=== PATIENT | male | born 1990 | race Caucasian/White ===

== ENCOUNTER 2016-07-14 12:19 | Emergency (ER) | payer SELFPAY ==
[2016-07-14] MEDS ORDERED: ACETAMINOPHEN 325 MG TABLET PO ONE (12:26)
--- NOTE | 2016-07-14 12:28 | ER Document Report ---
ED Medical Screen (RME) - General Stated Complaint: SORE THROAT Mode of Arrival: Ambulatory Information source: Patient Notes: Patient presents with sore throat, body ache, joint pain fever since . No vomiting or diarrhea. Pt looks good, nontoxic looking. I have greeted and performed a rapid initial assessment of this patient. A comprehensive ED assessment and evaluation of the patient, analysis of test results and completion of the medical decision making process will be conducted by additional ED providers.
--- NOTE | 2016-07-14 12:55 | ER Document Report ---
HPI - HPI Patient complains to provider of: sore throat Pain Level: 4 Context: Patient is a 26-year-old male presents emergency Department complaining of sore throat and body aches since . Patient admits to subjective fevers. Denies any nausea vomiting diarrhea constipation. Tolerating by mouth without any difficulty. 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 IN LAST 30 DAYS: No - HEENT HEENT: Atraumatic, Normocephalic, PERRLA, Pharyngeal Tenderness, Pharyngeal Erythema. negative: Pharyngeal Exudate, Tympanic Membrane Red, Tympanic Membrane Bulging Notes: No evidence of retropharyngeal or peritonsillar abscess. - NECK Neck: Normal Inspection, Other - Tender to palpation along and of the jaw.. negative: Lymphadenopathy-Left, Lymphadenopathy-Right - RESPIRATORY Respiratory: Breath Sounds Normal, No Respiratory Distress, Chest Non-Tender. negative: Rales, Rhonchi, Wheezing O2 Sat by Pulse Oximetry: 96 - CARDIOVASCULAR Cardiovascular: Regular Rate, Regular Rhythm, No Murmur Pulses: Normal: Radial - GI/ABDOMEN Gastrointestinal: Abdomen Soft, Abdomen Non-Tender, No Organomegaly - MUSCULOSKELETAL/EXTREMETIES Musculoskeletal/Extremeties: MAEW, FROM, Non-Tender, No Edema. negative: Eccymosis - NEURO Level of Consciousness: Awake, Alert, Appropriate Motor/Sensory: No Motor Deficit, No Sensory Deficit - DERM Integumentary: Warm, Dry, No Rash Course - Re-evaluation Re-evalutation: 07/14/16 13:45 Patient is a 26-year-old male presents to the emergency Department complaining of sore throat since . Rapid strep came back positive. We'll treat patient with by mouth penicillin and [facility]. - Vital Signs Vital signs: Temp Pulse Resp BP Pulse Ox 100.3 F 100 18 159/84 H 96 07/14/16 12:24 07/14/16 12:24 07/14/16 12:24 07/14/16 12:24 07/14/16 12:24 Discharge - Discharge Clinical Impression: Strep pharyngitis Condition: Good Disposition: HOME, SELF-CARE Instructions: Penicillin V K ([facility]), Strep Throat ([facility]) Prescriptions: Penicillin V Potassium [Penicillin Vk 500 mg Tablet] 500 mg PO BID #20 tablet Forms: Return to Work, Elevated Blood Pressure Referrals: [facility] [NO LOCAL MD] - Follow up as needed
[2016-07-14] MEDS ORDERED: PENICILLIN V POTASSIUM 500 MG TABLET PO ONE (13:47)
[2016-07-14 14:00] VITALS: BP 130/71
== END 2016-07-14 13:57 | disposition home or self-care (01) ==
LOC: ER 12:19
DX: J02.0 Streptococcal pharyngitis (principal); J02.9 Acute pharyngitis, unspecified; R52 Pain, unspecified; R50.9 Fever, unspecified; Z87.891 Personal history of nicotine dependence
CPT/HCPCS: 87804; 87880; 99283

== ENCOUNTER 2019-01-18 17:22 | Emergency (ER) | payer SELFPAY ==
--- NOTE | 2019-01-18 18:22 | EKG REPORT ---
SEVERITY:- ABNORMAL ECG - SINUS TACHYCARDIA ABNORMAL Q SUGGESTS ANTERIOR INFARCT : Confirmed by: Sidney Jean MD 18-Jan-2019 18:22:08
[2019-01-18] MEDS ORDERED: CLONIDINE HCL 0.1 MG TABLET PO ONE (18:41)
--- NOTE | 2019-01-18 18:41 | ER Document Report ---
ED Medical Screen (RME) - General Chief Complaint: Chest Pain Stated Complaint: BLOOD PRESSURE ISSUE Time Seen by Provider: 01/18/19 18:33 TRAVEL OUTSIDE OF THE [place] IN LAST 30 DAYS: No - HPI Notes: 01/18/19 18:39 Patient is a 28-year-old male with no significant past medical history who presents complaining of feeling chest pressure with some mild shortness of breath started couple hours ago, but has since improved. Patient states that he was drinking alcohol and ate a bunch of pizza last night. He also had a friend that showed up last night that ended up coding 3 times. Patient states that he does not feel depressed or emotional, but has noticed his blood pressure has been elevated as well today. Patient does admit to vaping. Denies any prolonged immobilization, distance travel, recent surgery/trauma, personal cancer history, hormone use, or previous DVT/PE. Denies PASCAL, fever, neck pain, URI, n/v/d, Abd pain, dysuria, back pain, or rash. I have treated and performed a rapid initial assessment of this patient. A comprehensive ED assessment and evaluation of the patient, analysis of test results and completion of medical decision making process will be conducted by additional ED providers. PHYSICAL EXAMINATION: Vitals: Heart rate during exam was 96 apical GENERAL: Well-appearing, well-nourished and in no acute distress. A&Ox4. Answers questions appropriately. LUNGS: Breath sounds clear to auscultation bilaterally and equal. No wheezes rales or rhonchi. HEART: Regular rate and rhythm without murmurs, rubs, gallops. Extremities: No cyanosis, clubbing, or edema b/l. Marine negative bilaterally. No lower extremity asymmetry. NEUROLOGICAL: Normal speech, normal gait. PSYCH: Normal mood, normal affect. - Related Data Allergies/Adverse Reactions: No Known Allergies Allergy (Verified 01/18/19 17:23) Past Medical History Renal/ Medical History: Denies: Hx Peritoneal Dialysis Physical Exam - Vital signs Vitals: Temp Pulse Resp BP Pulse Ox 98.8 F 114 H 14 205/104 H 97 01/18/19 17:34 01/18/19 17:34 01/18/19 17:34 01/18/19 17:34 01/18/19 17:34 Course - Vital Signs Vital signs: Temp Pulse Resp BP Pulse Ox 98.8 F 114 H 14 205/104 H 97 01/18/19 17:34 01/18/19 17:34 01/18/19 17:34 01/18/19 17:34 01/18/19 17:34
[2019-01-18 19:17] LABS: ABSOLUTE LYMPHOCYTES (AUTO) 1.2 10^3/uL (0.5-4.7); ABSOLUTE MONOCYTES (AUTO) 0.4 10^3/uL (0.1-1.4); ABSOLUTE NEUT (AUTO) 5.9 10^3/uL (1.7-8.2); BASOPHILS % (AUTO) 0.4 % (0-2); EOSINOPHILS % (AUTO) 0.5 % (0-6); HEMATOCRIT 45.9 % (37.9-51.0); HEMOGLOBIN 15.9 g/dL (13.5-17.0); LYMPHOCYTES % (AUTO) 15.6 % (13-45); MEAN CORPUSCULAR HEMOGLOBIN 28.9 pg (27.0-33.4); MEAN CORPUSCULAR HGB CONC 34.7 g/dL (32.0-36.0); MEAN CORPUSCULAR VOLUME 83 fl (80-97); MONOCYTES % (AUTO) 5.7 % (3-13); PLATELET COUNT 200 10^3/uL (150-450); RED BLOOD COUNT 5.52 10^6/uL (4.35-5.55); RED CELL DISTRIBUTION WIDTH 12.5 % (11.5-14.0); SEGMENTED NEUTROPHILS % (AUTO) 77.8 % (42-78); TOTAL CELLS COUNTED % (AUTO) 100 %; WHITE BLOOD COUNT 7.6 10^3/uL (4.0-10.5)
--- NOTE | 2019-01-18 19:20 | RADIOLOGY REPORT (SQ) ---
EXAM DESCRIPTION: CHEST 2 VIEWS COMPLETED DATE/TIME: 01/18/2019 7:07 pm REASON FOR STUDY: CP COMPARISON: None. EXAM PARAMETERS: NUMBER OF VIEWS: two views TECHNIQUE: Digital Frontal and Lateral radiographic views of the chest acquired. RADIATION DOSE: NA LIMITATIONS: none FINDINGS: LUNGS AND PLEURA: No opacities, masses or pneumothorax. No pleural effusion. MEDIASTINUM AND HILAR STRUCTURES: No masses or contour abnormalities. HEART AND VASCULAR STRUCTURES: Heart normal size. No evidence for failure. BONES: No acute findings. HARDWARE: None in the chest. OTHER: No other significant finding. IMPRESSION: NO ACUTE RADIOGRAPHIC FINDING IN THE CHEST. TECHNICAL DOCUMENTATION: JOB ID: [id number] [id number] 2010 [employer]- All Rights Reserved Reading location - IP/workstation name: [email or web address]
[2019-01-18 19:37] LABS: ALKALINE PHOSPHATASE 73 U/L (38-126); ANION GAP 11 (5-19); ASPARTATE AMINO TRANSFERASE 50 U/L (17-59); BILIRUBIN,DIRECT 0.2 mg/dL (0.0-0.4); BILIRUBIN,TOTAL 0.5 mg/dL (0.2-1.3); BLOOD UREA NITROGEN 14 mg/dL (7-20); CALCIUM 9.5 mg/dL (8.4-10.2); CARBON DIOXIDE 27 mmol/L (22-30); CHLORIDE 103 mmol/L (98-107); GLUCOSE 123 mg/dL (75-110); POTASSIUM 4.1 mmol/L (3.6-5.0); TOTAL PROTEIN 7.7 g/dL (6.3-8.2)
[2019-01-18] MEDS ORDERED: CLONIDINE HCL 0.2 MG TABLET PO ONE (19:43)
[2019-01-18] MEDS ORDERED: ASPIRIN 81 MG TABLET, CHEWABLE PO ONE (19:44)
--- NOTE | 2019-01-18 19:45 | ER Document Report ---
ED General - General Chief Complaint: Chest Pain Stated Complaint: BLOOD PRESSURE ISSUE Time Seen by Provider: 01/18/19 18:33 Primary Care Provider: [facility] [NO LOCAL MD] - Follow up in 3-5 days Mode of Arrival: Ambulatory Information source: Patient Notes: Patient is a 28-year-old male with no significant past medical history who presents complaining of feeling chest pressure, palpitations with some mild shortness of breath started couple hours ago, but has since improved. Patient states that he was drinking alcohol (4 shots and several beers) and ate a bunch of pizza prior to onset. He also had a friend that showed up last night that ended up coding 3 times. Patient states that he does not feel depressed or emotional, but has noticed his blood pressure has been elevated as well today. Patient does admit to vaping. Denies any prolonged immobilization, distance travel, recent surgery/trauma, personal cancer history, hormone use, or previous DVT/PE. Denies PASCAL, fever, neck pain, URI, n/v/d, Abd pain, dysuria, back pain, or rash. TRAVEL OUTSIDE OF THE [place] IN LAST 30 DAYS: No - HPI Onset: Just prior to arrival Onset/Duration: Sudden Quality of pain: Pressure Severity: Mild Associated symptoms: Chest pain, Chills, Sweating. denies: Nonproductive cough, Productive cough, Fever, Headache, Nausea, Vomiting, Shortness of breath Exacerbated by: Denies Relieved by: Denies Similar symptoms previously: No Recently seen / treated by doctor: No - Related Data Allergies/Adverse Reactions: No Known Allergies Allergy (Verified 01/18/19 17:23) Past Medical History - General Information source: Patient - Social History Smoking Status: Current Every Day Smoker Cigarette use (# per day): No - Vaping Smoking Education Provided: Yes - Smoking cessation counseling was provided for 4 minutes at the bedside Frequency of alcohol use: Social Drug Abuse: None Lives with: Spouse/Significant other Family History: Reviewed & Not Pertinent Patient has suicidal ideation: No Patient has homicidal ideation: No - Medical History Medical History: Negative Renal/ Medical History: Denies: Hx Peritoneal Dialysis Review of Systems - Review of Systems Notes: REVIEW OF SYSTEMS: CONSTITUTIONAL : Denies fever, chills, or sweats. Denies recent illness. Denies weight loss, recent hospitalizations. EENT: Denies visual changes, eye pain. Denies sore throat, oral lesions, difficulty swallowing. CARDIOVASCULAR: +chest pain. + palpitations. Denies lower extremity edema. RESPIRATORY: Denies cough. Denies shortness of breath, wheezing. GASTROINTESTINAL: Denies abdominal pain or distention. Denies nausea, vomiting, or diarrhea. Denies blood in vomitus, stools, or per rectum. Denies black, tarry stools. Denies constipation. GENITOURINARY: Denies difficulty urinating, painful urination, frequency, blood in urine, testicular pain or penile discharge. MUSCULOSKELETAL: Denies back or neck pain or stiffness. Denies joint pain or swelling. SKIN: Denies rash, lesions or sores. HEMATOLOGIC : Denies easy bruising or bleeding. LYMPHATIC: Denies swollen glands. NEUROLOGICAL: Denies confusion or altered mental status. Denies loss of consciousness. Denies dizziness or lightheadedness. Denies headache. Denies weakness or paralysis. Denies problems difficulty with ambulation, slurred speech. Denies sensory loss, numbness, or tingling. Denies seizures. PSYCHIATRIC: Denies anxiety or stress. Denies depression, suicidal ideation, or Physical Exam - Vital signs Vitals: Temp Pulse Resp BP Pulse Ox 98.8 F 114 H 14 205/104 H 97 01/18/19 17:34 01/18/19 17:34 01/18/19 17:34 01/18/19 17:34 01/18/19 17:34 - Notes Notes: PHYSICAL EXAMINATION: GENERAL: Well-appearing, well-nourished and in no acute distress. HEAD: Atraumatic, normocephalic. EYES: Pupils equal round and reactive to light, extraocular movements intact, sclera anicteric, conjunctiva are normal. ENT: Nares patent, oropharynx clear without exudates. Moist mucous membranes. NECK: Normal range of motion, supple without lymphadenopathy LUNGS: Breath sounds clear to auscultation bilaterally and equal. No wheezes rales or rhonchi. HEART: Regular rate and rhythm without murmurs ABDOMEN: Soft, nontender, nondistended abdomen. No guarding, no rebound. No masses appreciated. Musculoskeletal: Normal range of motion, no pitting or edema. No cyanosis. NEUROLOGICAL: Cranial nerves grossly intact. Normal speech, normal gait. Normal sensory, motor exams PSYCH: Normal mood, normal affect. SKIN: Warm, Dry, normal turgor, no rashes or lesions noted. Course - Re-evaluation Re-evalutation: Temp Pulse Resp BP Pulse Ox 99.2 F 96 20 202/113 H 98 01/18/19 18:41 01/18/19 18:41 01/18/19 19:35 01/18/19 19:35 01/18/19 19:35 Chest X-Ray 01/18/19 18:41 IMPRESSION: NO ACUTE RADIOGRAPHIC FINDING IN THE CHEST. 01/18/19 19:44 ED Course History: 28-year-old male with no significant past medical history presents with chest pressure, palpitations Patient evaluated. Vital signs were reviewed. Patient is hypertensive, afebrile. Previous medical records and nursing notes reviewed. Patient does not appear toxic or dehydrated they are in no acuted distress Exam Findings: Normal exam Lab Findings: CBC is without leukocytosis or anemia. CMP shows no electrolte abnormalities and normal renal function. LFTs WNL. UA not consistent with UTI. Cardiac enzymes within normal limits. EKG: Normal sinus rhythm. Anterior Q waves. Patient Interventions/Monitor: cooker loader, aspirin, clonidine. Revaluation: Patient has had no recurrence of chest pain Presentation of chest pain in an otherwise well appearing patient. Low clinical suspicion for ACS given clinical history, exam, EKG without ST elevations or depressions, and negative initial troponin. HEART score less than or equal to 3. PE also seems unlikely given clinical history, absence of tachycardia or dyspnea. Patient is PERC criteria negative. CXR without evidence of pneumothorax or pneumonia. No widened mediastinum. Aortic dissection also seems unlikely given history, symmetric pulses, CXR, and vitals. HEART Score: History-0 ECG-0 Age-0 Risk Factors-1 Troponin-0 Total:1 Chest pain in a patient without evidence of cardiac or other serious etiology on workup today. I discussed with patient that, based on their age, risk factors and emergency department testing today, the likelihood that their symptoms are related to a heart attack is very low (estimated risk of heart attack or over the next 30 days of less than 1%). The patient demonstrates decision sav ng capacity and has verbalized an understanding of these risks to me. Based on this, the patient has chosen to follow-up as an outpatient. Usual chest pain return precautions reviewed. The patient states understanding and agreement with this plan. 01/21/19 09:46 - Vital Signs Vital signs: Temp Pulse Resp BP Pulse Ox 99.2 F 96 19 175/100 H 99 01/18/19 18:41 01/18/19 18:41 01/18/19 21:27 01/18/19 21:02 01/18/19 21:27 - Laboratory Result Diagrams: 01/18/19 18:57 01/18/19 18:57 Laboratory results interpreted by me: 01/18/19 18:57 Glucose 123 H - Diagnostic Test Radiology reviewed: Image reviewed, Reports reviewed - EKG Interpretation by Me EKG shows normal: Sinus rhythm Rate: Normal Rhythm: NSR Discharge - Discharge Clinical Impression: Palpitation Chest pain Qualifiers: Chest pain type: unspecified Qualified Code(s): R07.9 - Chest pain, unspecified Hypertension Qualifiers: Hypertension type: unspecified Qualified Code(s): I10 - Essential (primary) hypertension Condition: Good Disposition: HOME, SELF-CARE Instructions: Aspirin (Cardiac) ([facility]), Chest Wall Pain ([facility]), Chest Pain of Unclear Cause ([facility]), Palpitations (Irregular or Rapid Heartrate) ([facility]) Additional Instructions: You were seen today for chest pain. The exact cause of your pain is unclear. However, based on your cardiac enzyme testing, chest x-ray, and EKG it does not appear that it is from an immediately life-threatening cause at this time. Although your testing here is normal is critical that you follow-up with your primary care physician for continued evaluation of this chest pain and possible stress testing. I recommended you see your physician within the next 24-48 hours to be evaluated for consideration of a stress test. Please return to emergency department immediately if you have worsening of your chest pain, shortness of breath, vomiting, become unable to exert yourself due to pain or difficulty breathing, you pass out, or have any pain that radiates into your arms, jaw, or back. Please also return if you have any additional symptoms that are concerning to you. Regarding Blood Pressure: Your blood pressure was noted to be greater than 120/80 at least once in the emergency room today. It is recommended that you follow-up with her primary care physician in the next week for repeat blood pressure check. The Centers for Medicare and Medicaid Services has specific recommendations regarding a person's blood pressure. There are several lifestyle modifications that are recommended in order to help lower your blood pressure. These include: Quitting smoking if you smoke. Reducing the amount of sodium in your diet. Getting regular exercise Limiting alcohol to no more than 2 drinks a day for men and one drink a day for women. Eating a healthy diet, including more fruits and vegetables, low fat dairy products, less saturated and total fat. Losing weight if you are overweight. FOLLOW-UP: Call your doctor's office and let them know your blood pressure was elevated and you were advised to get your blood pressure checked in the above time-line. If you are unable to get into your doctor's office in this time period, you can follow-up with a new physician (I have left the numbers below for a few primary care doctors affiliated with this [facility]) or return to the ER. PRIMARY CARE PHYSICIANS: Dr. Patrice Blanton [address], [place] [address] [phone] Dr Madden Address: [address] [place] [address] [place] [address] Dr Styles Address: [address] [place] [address] [place] [address] Prescriptions: Amlodipine Besylate [Norvasc 10 mg Tablet] 10 mg PO DAILY 2 Days #30 tablet Forms: Elevated Blood Pressure, Smoking Cessation Education Referrals: [facility] [NO LOCAL MD] - Follow up in 3-5 days
[2019-01-18 19:49] LABS: NT PRO BNP 27 pg/mL (<125)
[2019-01-18 19:53] LABS: TROPONIN I < 0.012 ng/mL
[2019-01-18 20:13] LABS: FREE T3 4.09 pg/mL (2.77-5.27); FREE T4 (FREE THYROXINE) 0.86 ng/dL (0.78-2.19)
[2019-01-18 20:26] LABS: THYROID STIMULATING HORMONE 3.85 uIU/mL (0.47-4.68)
[2019-01-18 21:36] VITALS: BP 175/100
== END 2019-01-18 21:12 | disposition home or self-care (01) ==
LOC: ER 17:22
DX: R07.89 Other chest pain (principal); R00.2 Palpitations; I10 Essential (primary) hypertension; R06.02 Shortness of breath; R68.83 Chills (without fever); R61 Generalized hyperhidrosis; F17.290 Nicotine dependence, other tobacco product, uncomplicated; Z71.6 Tobacco abuse counseling
CPT/HCPCS: 36415; 71046; 80053; 83735; 83880; 84439; 84443; 84481; 84484; 85025; 93005; 93010; 99285

== ENCOUNTER 2020-04-14 23:25 | Emergency (ER) | payer SELFPAY ==
--- NOTE | 2020-04-15 00:13 | ER Document Report ---
ED Medical Screen (RME) - General Chief Complaint: Palpitations Stated Complaint: HEART PALPATAIONS HAS ANXIETY Time Seen by Provider: 04/15/20 00:07 Notes: Patient presents to the ER for evaluation of continual heart palpitations with the sensation of irregular heartbeat that began approximately 3:00 this afternoon. He denies chest pain. He denies nausea or vomiting. He denies shortness of breath. He denies weakness. Exam- CONSTITUTIONAL: Well appearing. No acute distress. PULMONARY: Normal chest rise and fall. Breath sounds clear and equal bilaterally. No respiratory distress or stridor CARDIOVASCULAR: Regularly irregular rate. No murmurs. Distal extremities are warm and well perfused. I have greeted and performed a rapid initial assessment of this patient. A comprehensive ED assessment and evaluation of the patient, analysis of test results and completion of the medical decision making process will be conducted by additional ED providers. Dictation of this chart was performed using voice recognition software; therefore, there may be some unintended grammatical errors. TRAVEL OUTSIDE OF THE [place] IN LAST 30 DAYS: No - Related Data Allergies/Adverse Reactions: No Known Allergies Allergy (Verified 01/18/19 17:23) Home Medications: xanax, lisinopril, HCTZ, amilodipine Past Medical History Renal/ Medical History: Denies: Hx Peritoneal Dialysis Physical Exam - Vital signs Vitals: Temp Pulse Resp BP Pulse Ox 98.3 F 82 13 177/96 H 99 04/14/20 23:31 04/14/20 23:31 04/14/20 23:31 04/14/20 23:31 04/14/20 23:31 Course - Vital Signs Vital signs: Temp Pulse Resp BP Pulse Ox 98.3 F 82 13 177/96 H 99 04/14/20 23:31 04/14/20 23:31 04/14/20 23:31 04/14/20 23:31 04/14/20 23:31
--- NOTE | 2020-04-15 00:48 | RADIOLOGY REPORT (SQ) ---
EXAM DESCRIPTION: CHEST 2 VIEWS CLINICAL HISTORY: 30 years Male, palpitations COMPARISON: Two views of the chest January 18, 2019 FINDINGS: Lungs: Lungs are clear. No pneumonia or edema. No pneumothorax or pleural effusion. Mediastinum: Cardiac and mediastinal silhouette are normal. Bones: Osseous structures are normal. IMPRESSION: No acute process. No significant interval change.
[2020-04-15 01:54] LABS: ABSOLUTE BASOPHILS # (AUTO) 0.1 10^3/uL (0.0-0.2); ABSOLUTE EOSINOPHILS # (AUTO) 0.1 10^3/uL (0.0-0.6); ABSOLUTE MONOCYTES (AUTO) 0.6 10^3/uL (0.1-1.4); ABSOLUTE NEUT (AUTO) 5.1 10^3/uL (1.7-8.2); BASOPHILS % (AUTO) 0.7 % (0-2); EOSINOPHILS % (AUTO) 1.4 % (0-6); HEMATOCRIT 46.4 % (37.9-51.0); HEMOGLOBIN 16.2 g/dL (13.5-17.0); LYMPHOCYTES % (AUTO) 25.7 % (13-45); MEAN CORPUSCULAR HEMOGLOBIN 29.5 pg (27.0-33.4); MEAN CORPUSCULAR HGB CONC 34.9 g/dL (32.0-36.0); MEAN CORPUSCULAR VOLUME 84 fl (80-97); MONOCYTES % (AUTO) 7.5 % (3-13); PLATELET COUNT 203 10^3/uL (150-450); RED CELL DISTRIBUTION WIDTH 12.6 % (11.5-14.0); SEGMENTED NEUTROPHILS % (AUTO) 64.7 % (42-78); TOTAL CELLS COUNTED % (AUTO) 100 %; WHITE BLOOD COUNT 7.8 10^3/uL (4.0-10.5)
[2020-04-15 02:13] LABS: ALBUMIN 4.8 g/dL (3.5-5.0); ALKALINE PHOSPHATASE 78 U/L (38-126); ANION GAP 13 (5-19); ASPARTATE AMINO TRANSFERASE 36 U/L (17-59); BILIRUBIN,DIRECT 0.2 mg/dL (0.0-0.4); BILIRUBIN,TOTAL 0.6 mg/dL (0.2-1.3); BLOOD UREA NITROGEN 19 mg/dL (7-20); CALCIUM 9.6 mg/dL (8.4-10.2); CARBON DIOXIDE 23 mmol/L (22-30); CHLORIDE 104 mmol/L (98-107); CREATINE KINASE 261 U/L (55-170); GLUCOSE 121 mg/dL (75-110); POTASSIUM 3.7 mmol/L (3.6-5.0); TOTAL PROTEIN 7.7 g/dL (6.3-8.2)
[2020-04-15 02:29] LABS: CREATINE KINASE MB 2.63 ng/mL (<4.55)
[2020-04-15 02:31] LABS: TROPONIN I < 0.012 ng/mL
--- NOTE | 2020-04-15 04:36 | ER Document Report ---
ED Cardiac - General Chief Complaint: Palpitations Stated Complaint: HEART PALPATAIONS HAS ANXIETY Time Seen by Provider: 04/15/20 00:07 Mode of Arrival: Ambulatory Information source: Patient Notes: ED Medical Screen (Isidro mason) - General Chief Complaint: Palpitations Stated Complaint: HEART PALPATAIONS HAS ANXIETY Time Seen by Provider: 04/15/20 00:07 Notes: Patient presents to the ER for evaluation of continual heart palpitations with the sensation of irregular heartbeat that began approximately 3:00 this afternoon. He denies chest pain. He denies nausea or vomiting. He denies shortness of breath. He denies weakness. Exam- CONSTITUTIONAL: Well appearing. No acute distress. PULMONARY: Normal chest rise and fall. Breath sounds clear and equal bilaterally. No respiratory distress or stridor CARDIOVASCULAR: Regularly irregular rate. No murmurs. Distal extremities are warm and well perfused. 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 He has prescription for Xanax and uses it when he needs it but patient reports ever since 3 PM yesterday he has been having on and off symptoms of anxiety attacks and chest pressure. Patient reports she was diagnosed with hypertension last January here with 202/117 after drinking after a good friend had . He was told he has extreme stress and anxiety at that time. Since then he was placed on Norvasc lisinopril and HCTZ which decreased his pressure down to 130/80. Today after cutting grass and cleaning the yard he experienced blood pressure spiked to 170 systolic. EKG today reveals sinus rhythm [address] changes. He has not seen a pancake professional and I advised him to follow- up with Dr. Elier Robles outpatient TRAVEL OUTSIDE OF THE [place] IN LAST 30 DAYS: No - HPI Patient complains to provider of: Chest pain Is the pain a: Chronic problem Chest pain location: Substernal Quality of pain: Intermittent Severity now: Mild Severity at worst: Mild Pain level currently: 1 - Related Data Allergies/Adverse Reactions: No Known Allergies Allergy (Verified 01/18/19 17:23) Home Medications: xanax, lisinopril, HCTZ, amilodipine Past Medical History - General Information source: Patient - Social History Smoking Status: Current Every Day Smoker Cigarette use (# per day): Yes Chew tobacco use (# tins/day): No Smoking Education Provided: Yes Frequency of alcohol use: Occasional Drug Abuse: None Lives with: Family Family History: Reviewed & Not Pertinent Patient has suicidal ideation: No Patient has homicidal ideation: No - Past Medical History Cardiac Medical History: Reports: Hx Hypertension Renal/ Medical History: Denies: Hx Peritoneal Dialysis Review of Systems - Review of Systems Constitutional: See HPI, Weight loss - Patient reports he lost considerable amount of weight over 1 year and now weighs around his current 128 kg he reports he used to weigh 280 pounds. He does not get to exercise much because he drives a semitruck. EENT: No symptoms reported Cardiovascular: See HPI, Chest pain, Lightheaded Respiratory: No symptoms reported Gastrointestinal: No symptoms reported Genitourinary: No symptoms reported Male Genitourinary: No symptoms reported Musculoskeletal: No symptoms reported Skin: No symptoms reported Hematologic/Lymphatic: No symptoms reported Neurological/Psychological: See HPI, Anxiety Physical Exam - Vital signs Vitals: Temp Pulse Resp BP Pulse Ox 98.3 F 82 13 177/96 H 99 04/14/20 23:31 04/14/20 23:31 04/14/20 23:31 04/14/20 23:31 04/14/20 23:31 Interpretation: Hypertensive - General General appearance: Appears well, Alert - HEENT Head: Normocephalic, Atraumatic Eyes: Normal Pupils: PERRL - Respiratory Respiratory status: No respiratory distress Chest status: Nontender Breath sounds: Normal Chest palpation: Normal - Cardiovascular Rhythm: Regular Heart sounds: Normal auscultation Murmur: No - Abdominal Inspection: Normal Distension: No distension Bowel sounds: Normal Tenderness: Nontender Organomegaly: No organomegaly - Back Back: Normal, Nontender - Extremities General upper extremity: Normal inspection, Nontender, Normal color, Normal ROM, Normal temperature General lower extremity: Normal inspection, Nontender, Normal color, Normal ROM, Normal temperature, Normal weight bearing. No: Marine's sign - Neurological Neuro grossly intact: Yes Cognition: Normal Orientation: AAOx4 Merissa Coma Scale Eye Opening: Spontaneous Merissa Coma Scale Verbal: Oriented Hazel Coma Scale Motor: Obeys Commands Merissa Coma Scale Total: 15 Speech: Normal Motor strength normal: LUE, RUE, LLE, RLE Sensory: Normal - Psychological Associated symptoms: Normal affect, Normal mood - Skin Skin Temperature: Warm Skin Moisture: Dry Skin Color: Normal, Other - Multiple tattoos over multiple areas of body which include a right shoulder Norseman with a hammer. Course - Vital Signs Vital signs: Temp Pulse Resp BP Pulse Ox 98.3 F 82 13 177/96 H 99 04/14/20 23:31 04/14/20 23:31 04/14/20 23:31 04/14/20 23:31 04/14/20 23:31 - Laboratory Result Diagrams: 04/15/20 01:42 04/15/20 01:42 Laboratory results interpreted by me: 04/15/20 01:42 Glucose 121 H Creatine Kinase 261 H Discharge - Discharge Clinical Impression: Hypertension Qualifiers: Hypertension type: unspecified Qualified Code(s): I10 - Essential (primary) hypertension Condition: Stable Disposition: HOME, SELF-CARE Instructions: Beta Blockers ([facility]) Additional Instructions: Follow-up with personal doctor return to ER as needed take medicines as directed. Also follow-up with Dr. Robles pancake professional call his office tomorrow for appointment. Take beta-blockers daily if symptoms of anxiety occur. Prescriptions: Propranolol HCl [Inderal 20 mg Tablet] 20 mg PO Q12 PRN #30 tab PRN Reason: Anxiety Referrals: ELIER ROBLES MD [ACTIVE STAFF] - Follow up as needed
[2020-04-15] MEDS ORDERED: PROPRANOLOL HCL 20 MG TABLET PO ONE (04:42)
[2020-04-15 05:43] VITALS: BP 147/87
--- NOTE | 2020-04-15 11:15 | EKG REPORT ---
SEVERITY:- ABNORMAL ECG - SINUS RHYTHM CONSIDER ANTEROSEPTAL INFARCT BORDERLINE T ABNORMALITIES, INFERIOR LEADS : Confirmed by: Sidney Jean MD 15-Apr-2020 11:15:11
== END 2020-04-15 05:39 | disposition home or self-care (01) ==
LOC: ER 23:25
DX: I10 Essential (primary) hypertension (principal); R00.2 Palpitations; F41.9 Anxiety disorder, unspecified; F17.210 Nicotine dependence, cigarettes, uncomplicated
CPT/HCPCS: 93005; 99285; 36415; 82553; 82550; 83735; 84443; 85025; 80053; 84484; 71046; 93010; J3490